=== PATIENT | female | born 1970 ===

== ENCOUNTER 2024-01-10 06:03 | Day surgery (SDC) | payer OTHER ==
[2024-01-10] MEDS ORDERED: VANCOMYCIN HCL 1,000 MG VIAL IR ONE (09:45)
[2024-01-10] MEDS ORDERED: CEFAZOLIN SODIUM 1,000 MG VIAL IV ONE (09:45)
[2024-01-10] MEDS ORDERED: MACROBID 100 M100 MG PO (10:03)
[2024-01-10] MEDS ORDERED: TRAM1TAB98 PO (10:04)
== END 2024-01-10 14:20 | disposition home or self-care (01) ==
LOC: CIR.AMB 06:03
PROVIDERS: ATTEND Obstetrics & Gynecology Gynecology
DX: N39.3 Stress incontinence (female) (male) (principal); Z88.6 Allergy status to analgesic agent
CPT/HCPCS: 57288; C1771